=== PATIENT | male | born 1975 | race Caucasian/White ===

== ENCOUNTER 2021-06-22 20:15 | Emergency (ER) | payer OTHER, SELFPAY ==
[2021-06-22 20:24] VITALS: BP 152/103; PULSE 96; RESP 16; TEMP 36.2; O2SAT 100
--- NOTE | 2021-06-22 21:27 | ED.SKABFB ---
HPI - Skin/Abscess/Foreign Bdy General Chief complaint: Skin/Abscess/Foreign Body Stated complaint: BIOPSY SITE OOZING Time Seen by Provider: 06/22/21 20:48 Source: patient Mode of arrival: ambulatory Limitations: no limitations History of Present Illness HPI narrative: This is a 46-year-old male that presents to the emergency department for a wound check. Reports he had a biopsy of a lesion on the left side of his neck done today at a [facility] office. He has had continued oozing of blood from the site. Denies fever. Related Data Allergies Allergy/AdvReac Type Severity Reaction Status Date / Time No Known Allergies Allergy Verified 06/22/21 20:47 Review of Systems Review of Systems: CONSTITUTIONAL: Denies fever SKIN: Denies erythema All systems reviewed & are unremarkable except as noted in HPI and below PMFSH Past Medical History Medical History (Updated 06/22/21 @ 21:50 by Maria Luz Chapa PA-C) No active medical problems Family History Family History (Updated 09/15/15 @ 23:19 by DOCTOR UNKNOWN) Mother Hypertension Family history of diabetes mellitus in first degree relative Grandparent Family history of Parkinson's disease Family history of malignant neoplasm of breast Family history of heart disease in male family member before age 55 Father Malignant neoplasm of prostate Family history of lymphoma Social History Social History Smoking status: Current every day smoker Alcohol intake: current Exam Narrative: GENERAL: Well-appearing, well-nourished, and in no acute distress. HEAD: Normocephalic, atraumatic. EYES: EOMI. ENT: Nares clear, no rhinorrhea or epistaxis. Mucous membranes moist. Oropharynx without tonsillar hypertrophy exudate or other lesions. Bilateral TMs pearly [place] non-bulging NECK: Supple. No adenopathy. Left side of the neck with 3cm area lesion with central area that is friable with mild active oozing of blood. No surrounding erythema or edema EXTREMITIES: Normal range of motion. No edema. SKIN: Warm, dry, no rash. NEURO: No focal deficits. Alert and oriented x3. PSYCH: Normal mood and affect Course Vital Signs Vital signs: Vital Signs Temperature 97.1 F L 06/22/21 20:24 Pulse Rate 96 06/22/21 20:24 Respiratory Rate 16 06/22/21 20:24 Blood Pressure 152/103 H 06/22/21 20:24 Pulse Oximetry 100 06/22/21 20:24 Temperature 97.1 F L 06/22/21 20:24 Pulse Rate 96 06/22/21 20:24 Respiratory Rate 16 06/22/21 20:24 Blood Pressure 152/103 H 06/22/21 20:24 Pulse Oximetry 100 06/22/21 20:24 MDM - Skin/Abscess/Foreign Bdy MDM Narrative Medical decision making narrative: Patient presents to the emergency department after a biopsy of a lesion to the left side of the neck. He had had some oozing of blood from the area. This was controlled with pressure of the area. Wound was covered with antibiotic ointment and bandage. Instructed to have close follow-up with his [employer]. He was given warnings to return to the ER Critical Care Time Critical Care Time Critical Care Time: No Discharge Plan Discharge Clinical Impression: Visit for wound check Patient Disposition: Home, Self-Care Condition: Stable Instructions: Acute Wounds (ED) Additional Instructions: Return if symptoms worsen or concerns: any redness, swelling, pain or fever over 101 Keep the area clean with mild soap and water. Apply antibiotic ointment and nonstick bandage. If you have any further trouble with bleeding apply pressure to the area. Follow up with your [employer] [facility] for further evaluation and management Follow-up/Referrals: Rashaad Wolf, [Primary Care Provider] -
== END 2021-06-22 21:58 | disposition home or self-care (01) ==
PROVIDERS: Emergency Provider Emergency Medicine; PCP Internal Medicine
DX: Z48.01 Encounter for change or removal of surgical wound dressing (principal); F17.200 Nicotine dependence, unspecified, uncomplicated
CPT/HCPCS: 99282